=== PATIENT | female | born 1990 | race Caucasian/White ===

== ENCOUNTER 2023-05-21 17:58 | Emergency (ER) | payer OTHER ==
[2023-05-21 18:19] VITALS: BP_SYST 142; PULSE 89; RESP 18; TEMP 98.4; O2SAT 97
[2023-05-21 19:25] LABS: BASOPHILS # (AUTO) 0.1 K/uL (0.0-0.2); BASOPHILS % (AUTO) 0.7 % (0.0-2.0); EOSINOPHILS # (AUTO) 0.2 K/uL (0.0-0.4); EOSINOPHILS % (AUTO) 1.7 % (0.0-4.0); HEMATOCRIT 37.5 % (36-48); HEMOGLOBIN 12.5 g/dL (12.0-16.0); LYMPHOCYTES # (AUTO) 3.1 K/uL (1.0-5.5); MEAN CORPUSCULAR HEMOGLOBIN 30 pg (27-31); MEAN CORPUSCULAR HGB CONC 33 % (32-36); MEAN CORPUSCULAR VOLUME 89 fL (79.0-98.0); MONOCYTES # (AUTO) 0.8 K/uL (0.0-1.0); MONOCYTES % (AUTO) 7.5 % (1.7-9.3); NEUTROPHILS # (AUTO) 6.6 K/uL (1.8-7.7); NEUTROPHILS % (AUTO) 61.1 % (40.0-70.0); PLATELET COUNT (AUTO) 353 K/uL (130-430); RED BLOOD CELL COUNT(AUTO) 4.21 MIL/uL (4.2-6.2); RED CELL DISTRIBUTION WIDTH 13.6 % (9.0-15.0); WHITE BLOOD COUNT (AUTO) 10.7 K/uL (4.8-10.8)
[2023-05-21 19:41] LABS: CALCIUM 8.7 mg/dL (8.4-11.0); CREATININE 0.51 mg/dL (0.55-1.30)
[2023-05-21 19:46] LABS: ALBUMIN 3.6 g/dL (3.4-4.8); TOTAL BILIRUBIN 0.2 mg/dL (0.0-1.0)
[2023-05-21] MEDS ORDERED: FAMO40TA71 PO (20:27)
[2023-05-21] MEDS ORDERED: MAG-AL HYDROX/SIMETH 30 ML UDC PO ONE (20:30)
[2023-05-21 20:33] VITALS: BP_SYST 139; PULSE 85; RESP 18; TEMP 98.4; O2SAT 97
== END 2023-05-21 20:33 | disposition home or self-care (01) ==
LOC: SED 17:58
DX: K21.9 Gastro-esophageal reflux disease without esophagitis (principal); F41.9 Anxiety disorder, unspecified; F43.9 Reaction to severe stress, unspecified; Z79.899 Other long term (current) drug therapy
CPT/HCPCS: 36415; 71045; 80053; 85025; 93005; 99285